=== PATIENT | female | born 1940 | race Caucasian/White ===

== ENCOUNTER 2016-06-25 02:18 | Inpatient (IN) ==
[2016-06-24 09:25] LABS: URINE MICRO REVIEW NEEDED? NO; URINE SOURCE VOIDED
[2016-06-24 09:25] LABS: MANUAL DIFF NEEDED? NO
[2016-06-24 09:29] LABS: BASO% 0.1 % (0.0-0.8); EOS# 0.16 X1000 (0.0-0.7); EOS% 2.1 % (0.0-10.0); HEMATOCRIT 35.8 % (37.0-47.0); HEMOGLOBIN 11.8 g/dL (12.0-16.0); LYMPH# 2.01 X1000 (1.2-3.4); LYMPH% 25.8 % (20.5-51.1); MCH 25.8 PG (27-31); MCV 78.3 FL (81-99); PLT 395 X1000 (130-400); RBC 4.57 XMIL (4.2-5.4)
--- NOTE | 2016-06-24 09:30 | EKG Report ---
Test Performed on : 06/24/2016 09:00:47 AM Test Reason : PAT Blood Pressure : / mmHG Vent. Rate : 075 BPM Atrial Rate : 075 BPM P-R Int : 182 ms QRS Dur : 082 ms QT Int : 396 ms P-R-T Axes : 078 -15 026 degrees QTc Int : 442 ms Normal sinus rhythm. Normal ECG When compared with ECG of 15-OCT-2015 23:04, No significant change was found Confirmed by Chelsie TORRE, Tomás Zuleta ([id number]) on 06/24/2016 6:55:28 PM
[2016-06-24 09:34] LABS: BILIRUBIN URINE NEGATIVE (NEGATIVE); BLOOD URINE NEGATIVE (NEGATIVE); COLOR YELLOW; GLUCOSE URINE NEGATIVE (NEGATIVE); LEUKOCYTES URINE NEGATIVE (NEGATIVE); NITRITE URINE NEGATIVE (NEGATIVE); PH URINE 6.5; PROTEIN URINE NEGATIVE (NEGATIVE); SP GRAVITY URINE 1.021; TURBIDITY URINE CLEAR (CLEAR); UROBILINOGEN URINE 3 mg/dL (NORMAL)
[2016-06-24 09:36] LABS: UR EPITHELIAL CELLS <10 /HPF (<10); URINE BACTERIA NEGATIVE /HPF; URINE RBC <10 /HPF (<10); URINE WBC <10 /HPF (<10)
[2016-06-24 09:38] LABS: INR 0.99; PROTIME 10.4 Seconds (9.2-11.7); PTT 29.4 Seconds (22.0-36.0)
[2016-06-24 10:01] LABS: AGAP 14; BUN 24 mg/dL (8-22); CALCIUM 8.9 mg/dL (8.8-10.2); CHLORIDE 92 mmol/L (98-107); COSMO 272; POTASSIUM 4.7 mmol/L (3.5-5.1); SODIUM 134 mmol/L (136-145); TCO2 28 mmol/L (25-35)
[2016-06-25] MEDS ORDERED: PEPCID ONE (06:06)
[2016-06-25] MEDS ORDERED: LYRICA ONE (06:06)
[2016-06-25] MEDS ORDERED: COLACE ONE (06:06)
[2016-06-25] MEDS ORDERED: REGLAN ONE (06:06)
[2016-06-25] MEDS ORDERED: KEFZOL 1 GM/D5W 1 GM/50 ML IVPB ONE (06:07)
[2016-06-25] MEDS ORDERED: CELEBREX ONE (06:07)
[2016-06-25] MEDS ORDERED: LR 1,000 ML ONE ×2 (06:07→09:44)
[2016-06-25] MEDS ORDERED: VANCOMYCIN ONE (06:51)
[2016-06-25] MEDS ORDERED: SODIUM CHLORIDE 0.9% ONE (06:51)
[2016-06-25] MEDS ORDERED: TORADOL ONE (06:51)
[2016-06-25] MEDS ORDERED: CYKLOKAPRON 1,000 MG/NS 1,000 MG/100 ML IVPB ONE ×2 (06:51→06:53)
[2016-06-25] MEDS ORDERED: MARCAINE 0.25% PF/EPI 1:200,000 ONE (06:51)
[2016-06-25] MEDS ORDERED: DURAMORPH ONE (06:51)
[2016-06-25] MEDS ORDERED: CLAVE SECONDARY SET 11953 ONE (06:52)
[2016-06-25] MEDS ORDERED: NEOSPORIN G.U. IRRIGANT ONE (06:52)
[2016-06-25] MEDS ORDERED: EXPAREL 1.3% ONE (06:52)
[2016-06-25] MEDS ORDERED: VERSED ONE (07:00)
[2016-06-25] MEDS ORDERED: DIPRIVAN 1% 500 MG/50 ML BOTTLE ONE (07:00)
[2016-06-25 08:33] LABS: URINE MICRO REVIEW NEEDED? NO; URINE SOURCE CATH
[2016-06-25 08:47] LABS: BILIRUBIN URINE NEGATIVE (NEGATIVE); BLOOD URINE NEGATIVE (NEGATIVE); COLOR YELLOW; GLUCOSE URINE NEGATIVE (NEGATIVE); LEUKOCYTES URINE NEGATIVE (NEGATIVE); NITRITE URINE NEGATIVE (NEGATIVE); PROTEIN URINE NEGATIVE (NEGATIVE); SP GRAVITY URINE 1.018; TURBIDITY URINE CLEAR (CLEAR); UROBILINOGEN URINE 2 mg/dL (NORMAL)
[2016-06-25 08:49] LABS: UR EPITHELIAL CELLS <10 /HPF (<10); URINE BACTERIA NEGATIVE /HPF; URINE RBC <10 /HPF (<10); URINE WBC <10 /HPF (<10)
--- NOTE | 2016-06-25 08:58 | HISTORY AND PHYSICAL ---
ADMITTING PHYSICIAN: Julio César Nelson MD PRIMARY CARE PROVIDER: Les Ellison MD CHIEF COMPLAINT: Right knee pain. HISTORY OF PRESENT ILLNESS: Ms. Tejada is a 75-year-old white female who has experienced progressive right knee pain for some time. Radiographic evaluation of the right knee reveals advanced degenerative joint disease. Ms. Tejada's symptoms are worse with weightbearing and activity. Despite conservative therapy she has a significant reduction in her ability to perform her normal daily activities. She will be admitted at this time for a right total knee arthroplasty. ALLERGIES: Acetaminophen. PAST MEDICAL HISTORY: 1. Osteoarthritis. 2. Hypertension. 3. Depression. 4. Insomnia. PAST SURGICAL HISTORY: 1. Gastric bypass. 2. Cholecystectomy. 3. Hysterectomy. 4. Right knee arthroscopy. 5. Breast reduction. SOCIAL HISTORY: The patient is a remote smoker. She is . She lives alone. CURRENT MEDICATIONS: 1. Lotensin 20 mg daily. 2. Abilify 5 mg at bedtime. 3. Oxycodone acetaminophen 10/650, 10 mg by mouth twice daily. 4. Lexapro 20 mg daily. 5. Celecoxib 200 mg by mouth daily. 6. Restoril 30 mg by mouth at bedtime. REVIEW OF SYSTEMS: HEENT: No history of stroke or cerebrovascular disease. Denies any interval health change. Cardiac: The patient has a history of hypertension. Denies coronary artery disease or valvular heart disease. No chest pain, pressure, or other anginal equivalence. Pulmonary: The patient is a remote smoker. Denies chronic lung disease. Gastrointestinal: No recent nausea, vomiting, diarrhea, or constipation. Genitourinary: Denies kidney or bladder infection or dysfunction. Neurological: She is treated for insomnia and she has a history of depression. Musculoskeletal: Arthritis of the right knee. PHYSICAL EXAMINATION: GENERAL: The patient is resting in bed. She is articulate and able to answer all questions. HEENT: The head is normocephalic and atraumatic. Pupils are equal, round, and reactive to light. Nares are patent. Throat is without exudate. NECK: Supple. HEART: Regular rate and rhythm. No murmurs, gallops, or rubs. LUNGS: Clear to auscultation bilaterally. GASTROINTESTINAL: The abdomen is round. Bowel sounds are present. It is nontender. GENITOURINARY: Not examined. NEUROLOGICAL: She discerns soft touch in the affected extremity. MUSCULOSKELETAL: Right knee: No deformity, edema, or ecchymosis is noted. She has a good peripheral pulse. IMPRESSION: Degenerative joint disease of the right knee. PLAN: Right total knee arthroplasty. The risks and benefits of surgery were explained to the patient including the risks of anesthesia, , bleeding, infection, damage to tendons, ligaments, nerves, and blood vessels, the possibility of blood clots, and other imponderables were discussed and the patient wishes to proceed with operative management at this time. Dictated by RODERICK Berry for Chip Nelson MD cc: RODERICK Berry MD
[2016-06-25] MEDS ORDERED: LOTENSIN PO SCH (09:00)
[2016-06-25] MEDS ORDERED: LEXAPRO PO SCH ×2 (09:00→21:00)
[2016-06-25] MEDS ORDERED: PERCOCET-10 PO SCH (09:00)
[2016-06-25] MEDS ORDERED: FENTANYL ONE (09:08)
[2016-06-25] MEDS ORDERED: NS 1,000 ML ONE (09:11)
[2016-06-25] MEDS ORDERED: XYLOCAINE-MPF 2% ONE (09:44)
[2016-06-25] MEDS ORDERED: ZOFRAN ONE (09:44)
[2016-06-25] MEDS ORDERED: DECADRON ONE (09:44)
[2016-06-25] MEDS: CELEBREX PO SCH (12:02)
[2016-06-25] MEDS: COLACE PO SCH ×2 (12:04→20:17)
[2016-06-25] MEDS: PERCOCET-10 PO PRN ×3 (12:23→20:18)
--- NOTE | 2016-06-25 13:52 | OPERATIVE NOTE ---
PROCEDURE DATE: 06/25/2016 PREOPERATIVE DIAGNOSIS: Degenerative joint disease, right knee. POSTOPERATIVE DIAGNOSIS: Degenerative joint disease, right knee. PROCEDURE: Right total knee replacement. SURGEON: Ness Nelson MD ARMATURE COIL WINDER: FAREED Nation ANESTHESIA: Spinal. COMPLICATION: None. PROCEDURE IN DETAIL: A 75-year-old female presents for right knee replacement. Risks, benefits, and no guarantees were discussed, and she is willing to proceed. She was taken to the operating room and satisfactory anesthesia obtained. The right knee was prepped and draped in the usual sterile fashion. A time-out was taken to confirm operative site, procedure, and patient. The leg was wrapped with an Esmarch, tourniquet inflated to 350 mmHg. A midline incision was made, followed by a quad tendon sparing arthrotomy. The patella was everted and resurfaced with freehand technique and subluxed to expose the distal femur. The knee was flexed. An intramedullary hole made in the distal femur and the distal femoral cutting block secured in 5 degrees of valgus. Distal femoral resection was then made and the femur sized to a DePuy Attune size 5 femoral component. The 4 in 1 block was secured and the anterior, posterior, and chamfer cuts sequentially made. The PCL was preserved and the knee flexed with the PCL retractor placed behind the tibia to protect the PCL and neurovascular bundle. The tibial cutting block was secured with extramedullary alignment and tibial resection made. Flexion and extension gaps were noted to be roughly equal compatible with a 6 mm spacer poly. Any osteophytes were debrided about the tibia and femur at this time. The tibia was sized to a size 5 tibial tray. Trial reduction revealed good range of motion and stability. The patella was trialed and noted to be a 35 medialized dome patella. The drill paddle was used to prepare for the patellar implant. The trial implants were removed and the bony surfaces thoroughly irrigated with pulsatile lavage. Cement with a gram of vancomycin was then utilized to cement a DePuy size 5 rotating platform tibial tray, a size 5 right cruciate-retaining femoral component, and a 35 medialized dome patella onto the knee. Excess cement was removed with a Canyon elevator as necessary. The and. The joint capsule was injected with Exparel for pain management. A Hemovac drain placed while the cement hardened. After the hardening of the cement, a 6 mm size 5 rotating platform tibial poly was secured in the tibial tray and the knee reduced. Final range of motion was assessed with 0-120 degrees of motion and excellent soft tissue balance with midline patellar tracking. The wound was then copiously irrigated with irrigant. It was closed over the drain with #1 Vicryl in the arthrotomy, 2-0 Vicryl in the subcutaneous, and skin margarita on the skin edges. Sterile dressings completed the closure and the patient was recovered from anesthesia and transferred to the recovery room in stable condition. No intraoperative complications were noted. Instrument count and sponge count was correct at the time of closure. cc: Chip Nelson MD
[2016-06-25] MEDS: MORPHINE IV PRN (15:03)
[2016-06-25] MEDS: KEFZOL 1 GM/D5W 1 GM/50 ML IVPB IV SCH ×2 (15:03→23:26)
[2016-06-25] MEDS: NS 1,000 ML IV SCH ×2 (15:06→23:26)
--- NOTE | 2016-06-25 16:48 | PROGRESS NOTE ---
DATE: 06/25/2016 Ms. Tejada is awake sitting up in the bed. She is able to answer questions appropriately. Her dressing is dry and intact. Neurologically intact. Her vital signs are stable. She is afebrile, able to move her feet and toes up and down. Currently the patient is stable. Dictated by FAREED Nation for Chip Nelson MD cc: FAREED Nation MD
--- NOTE | 2016-06-25 17:41 | Diag Imaging Result Document ---
PROCEDURE NAME: KNEE 1-2 VIEWS-RIGHT - 06/25/2016 PORTABLE RIGHT KNEE 2 VIEWS: FINDINGS: There has been total knee arthroplasty. There is no evidence of fracture or other acute bony abnormality. IMPRESSION: Postsurgical change.
[2016-06-25] MEDS: PERIDEX MT SCH (20:17)
[2016-06-25] MEDS ORDERED: LOTENSIN PO ONE (20:26)
[2016-06-25] MEDS ORDERED: ABILIFY PO SCH (21:00)
[2016-06-25] MEDS ORDERED: RESTORIL PO SCH (21:00)
[2016-06-26] MEDS: PERCOCET-10 PO PRN ×4 (01:37→13:26)
[2016-06-26 05:57] LABS: AGAP 10; BUN 14 mg/dL (8-22); CALCIUM 7.7 mg/dL (8.8-10.2); CHLORIDE 93 mmol/L (98-107); COSMO 258; POTASSIUM 4.2 mmol/L (3.5-5.1); SODIUM 129 mmol/L (136-145); TCO2 26 mmol/L (25-35)
[2016-06-26] MEDS ORDERED: XARELTO PO SCH (06:00)
[2016-06-26 06:08] LABS: HEMATOCRIT 26.2 % (37.0-47.0); HEMOGLOBIN 8.3 g/dL (12.0-16.0)
[2016-06-26] MEDS: MORPHINE IV PRN ×2 (06:22→11:13)
[2016-06-26] MEDS: COLACE PO SCH (08:14)
[2016-06-26] MEDS: PERIDEX MT SCH (08:14)
[2016-06-26] MEDS: CELEBREX PO SCH (08:15)
--- NOTE | 2016-06-26 10:52 | DISCHARGE SUMMARY ---
ADMISSION DATE: 06/25/2016 DISCHARGE DATE: 06/26/2016 ADMITTING DIAGNOSIS: Degenerative joint disease, right knee. ADDITIONAL DIAGNOSES: 1. Hypertension. 2. Depression. 3. Insomnia. DISCHARGE DIAGNOSES: 1. Degenerative joint disease, right knee. 2. Hypertension. 3. Depression. 4. Insomnia. ADMITTING HISTORY AND HOSPITAL COURSE: Ms. Tejada is a 75-year-old white female with a history of right knee pain for some time now. We performed a right total knee arthroplasty on her yesterday and after surgery she remained afebrile. Her vital signs remained stable. She is currently ambulating about 200 feet with a front wheel walker. Today her hematocrit is 26.2. The vital signs were stable. We plan on discharging her home today with home health and she has her daughter that is going to be helping her at home as well. DISCHARGE MEDICATIONS: Lexapro 20 mg p.o. daily, Restoril 30 mg p.o. at bedtime, Abilify 5 mg p.o. at bedtime, Lotensin 20 mg p.o. daily, Percocet 10 1-2 p.o. q.6 hours p.r.n. for pain, Xarelto 10 mg p.o. daily for 14 days. DISCHARGE INSTRUCTIONS: Ms. Tejada is to discharge home today where she will begin a home physical therapy regimen. Physical therapy is going to come out with her and work with her in her home. I discussed with her that she is going to be going home with pain medication as well as a blood thinner. I also talked with her and explained that she should call us if she has any drainage, any discharge, or any fever in the knee. I also told her that she should call if she has any other questions. She will need to follow with Dr. Nelson in about 10 days for a routine appointment and have her margarita removed. Dictated by FAREED Nation for Chip Nelson MD cc: FAREED Nation MD
[2016-06-26] MEDS: NS 1,000 ML IV SCH (12:39)
[2016-06-26 13:20] VITALS: BP 122/56
[2016-06-26] MEDS ORDERED: LOTENSIN PO SCH (21:00)
== END 2016-06-26 13:39 | disposition home health service (06) ==
LOC: SURHOLD 02:18 → 4N 08:02
PROVIDERS: ADMIT Orthopaedic Surgery Adult Reconstructive Orthopaedic Surgery; ATTEND Orthopaedic Surgery Adult Reconstructive Orthopaedic Surgery